=== PATIENT | female | born 1985 | race Caucasian/White ===

== ENCOUNTER 2019-05-27 07:46 | Emergency (ER) | payer OTHER ==
[~2019-05-27] VITALS: Ht 154.9 cm; Wt 59.0 kg
[2019-05-27] MEDS ORDERED: XANAX 0.5 MG0.5 MG (08:05)
[2019-05-27] MEDS ORDERED: IBUPROFEN 800800 M1 PO (09:16)
[2019-05-27 09:35] VITALS: BP 110/79
== END 2019-05-27 09:35 | disposition home or self-care (01) ==
LOC: M.ERS 07:46
DX: S93.691A Other sprain of right foot, initial encounter (principal); Z98.890 Other specified postprocedural states; Z90.89 Acquired absence of other organs; Z88.1 Allergy status to other antibiotic agents; Z88.8 Allergy status to other drugs, medicaments and biological substances; W18.39XA Other fall on same level, initial encounter; Y92.89 Other specified places as the place of occurrence of the external cause; Y93.89 Activity, other specified; Y99.8 Other external cause status